=== PATIENT | male | born 1990 | race Two or more races ===

== ENCOUNTER 2016-11-27 23:44 | Inpatient (IN) | payer SELFPAY ==
--- NOTE | 2016-11-28 00:09 | EDPHY ---
H & P Stated Complaint: c/o vomitng x 3 days Time Seen by Provider: 11/27/16 23:57 HPI/ROS: CHIEF COMPLAINT: vomiting, retching, weakness for 3 days HISTORY OF PRESENT ILLNESS: this is a 26-year-old previously healthy young male without any antecedent GI workup who presents with onset at 4:00 a.m. on November 25 of an illness. When he woke up he had bilateral upper and epigastric discomfort without pain in the back. He also started retching at the time and he has been retching ever since for the most part dry heaves. At times he been some blood streaks but no stephanie hematemesis. Since that time he has essentially been unable to keep any fluids down. There is less of a sodium of decent fluid intake was Saturday evening before going to bed as which time he was feeling well. He has had no known exposure. No also been currently ill. His girlfriend is here with him did take care of him the 1st night of his illness and notes that she has not subsequent become sick. Furthermore, there is no antecedent outbreak of norovirus in the community. Also, he did not have an episode of a recent sore throat the in the last 3-4 weeks. He also notes that he gets this almost on a yearly basis for the last 4 years. However, this is by far and away the worse. Typically last 12-24 hours. He also frankly admits to having marijuana use 4 times weekly although certainly not daily. Initially, he has 3 alcoholic drinks a week, but no more than that. He has a negative CAGE Questionnaire. He denies any other recreational drug use such as crystal meth or methamphetamines or acid. At this point time he does not have the urge to urinate. He is alert and oriented x3. As to the abdominal discomfort in the epigastrium, it is not migraine and does not radiate to the back. He has never had before. He has never had any prior GI workup. No prior ultrasound or CT scans. Furthermore, he has not tried anything specifically to make ago weight has been persistent now for 2 and half days almost 3 days. It is moderate intensity, and feels like an ache REVIEW OF SYSTEMS: Constitutional: No fever, no chills. Eyes: No discharge No diplopia ENT: No sore throat. He does complain of a very severe dry mouth Cardiovascular: No chest pain, no palpitations. Respiratory: No cough, shortness of breath, or wheezing. Gastrointestinal: No diarrhea. Genitourinary: No hematuria or frequency. Musculoskeletal: No back pain. Skin: No rashes. Neurological: No headache. 10 point ROS otherwise negative Source: Patient Exam Limitations: No limitations - Personal History Current Tetanus Diphtheria and Acellular Pertussis (TDAP): Yes - Medical/Surgical History Hx Asthma: No Hx Chronic Respiratory Disease: No Hx Diabetes: No Hx Cardiac Disease: No Hx Renal Disease: No Hx Cirrhosis: No Hx Alcoholism: No Hx HIV/AIDS: No Hx Splenectomy or Spleen Trauma: No - Social History Smoking Status: Never smoked Alcohol Use: Occasionally Drug Use: Marijuana - Physical Exam Exam: General Appearance: Alert, mod distress, without diaphoresis. Afebrile. Normal phonation. No respiratory distress. Cotton mouth Eyes: Pupils equal and round no pallor or injection, pupils are at 6 mm which are large for blood male. No icterus ENT, Mouth: Mucous membranes dry, like on. Pharynx with erythema but no exudate. TM Clear. Neck: No adenopathy. Supple. No JVD. Trachea in midline. Respiratory: There are no retractions, lungs are clear to auscultation. Cardiovascular: Regular rate and rhythm, without murmur. Tachycardic. Abdomen: Soft bilateral diffuse mild tenderness above the umbilicus without masses, liver edge not percuss to be enlarged., no masses, bowel sounds normal. Femoral pulses equal. Neurological: Ox3. No motor weakness. Sensation intact. Gait nl. Skin: Warm and dry, no rashes. Musculoskeletal: No joint swelling. Extremities: No edema. Psychiatric: Normal affect. Patient is oriented X 3, there is no agitation Constitutional: Initial Vital Signs Temperature (C) 36.3 C 11/27/16 23:47 Heart Rate 81 11/27/16 23:47 Respiratory Rate 16 11/27/16 23:47 Blood Pressure 111/86 H 11/27/16 23:47 O2 Sat (%) 94 11/27/16 23:47 O2 Delivery Mode Room Air Allergies/Adverse Reactions: azithromycin Allergy (Verified 11/27/16 23:47) Home Medications: Medication Instructions Recorded NK [No Known Home Meds] 11/27/16 Medical Decision Making - Diagnostics EKG Interpretation: EKG. Interpreted by me contemporaneously. See my interpretation in [facility]. Heart rate is 122 evidence of sinus tachycardia. There is ST segment flattening and biphasic T in leads V3 through V6 as well as to a lesser degree in 2 3 and F suggestive of blood per rectum malady although ischemia is not ruled out. These are considered nonspecific ST-T changes. There is normal R- wave progression across precordium. There are Q-waves present in 2 3 and F however these are rather narrow to suggest that there physiologic rather than infarction related. QTC is 415 ED Course/Re-evaluation: Upon initial exam he appeared quite dehydrated and notably tachycardic. EKG is evidence above. Thereby he was started on aggressive fluid resuscitation as well as IV Zofran. I also gave him a dose of IV Benadryl with the anticipation of perhaps transition to Haldol. His clinical syndrome certainly would be compatible with cyclic vomiting syndrome. He had a good response to the Zofran and was no longer retching which was initially was doing while I did the initial exam. However furthermore, he also noted to be still nauseated thus a dose of Ativan was given. Initial laboratory studies were particularly worrisome in view of the profound hemoconcentration and evidence of acute renal injury. Thus, also in addition to the EKG findings, a troponin was added which was also detectable at 0.038. In view of the profound dehydration and kidney injury as evidenced by the electrolytes with a creatinine of 5.5 and hemoglobin of 20.8 I recommended hospitalization. I also recommended that he go by ambulance as he did have elevated troponin. He is adamant that he is fine to be driven by his girlfriend though it is [address] I have explained to them the potential risk of traveling in the setting of an elevated troponin with abnormal EKG and x-ray findings and risk of . He is awake alert oriented x3 and cognizant of the risks. Call was placed to the hospitalist, Dr. Clark, at [facility] and he agreed with admission to the telemetry floor for subsequent workup. As part of the differential would include who strep pharyngitis in the recent contacts however he certainly has had no history to suggest that. He does have a red throat the although he has been vomiting quite a bit. He is unable to provide a urinalysis at this point thus we are unable to perform her urine tox to further cooperate the fact that he does not use other illicit substances. A CPK will be added due to the potential for kidney injury in that setting of rhabdomyolysis. Differential Diagnosis: Differential diagnosis includes, but is not limited to: Gastroenteritis, dehydration, hepatitis, cholecystitis, appendicitis, gastritis , mesenteric adenitis, food poisoning, bacterial dysentery. - Data Points Laboratory Results: Laboratory Results 11/28/16 00:08 11/28/16 00:08 11/28/16 11/28/16 11/28/16 00:08 00:08 00:08 WBC RBC Hgb Hct MCV MCH MCHC RDW Plt Count MPV Neut % (Auto) Lymph % (Auto) [place] % (Auto) Eos % (Auto) Baso % (Auto) Nucleat RBC Rel Count Absolute Neuts (auto) Absolute Lymphs (auto) Absolute Monos (auto) Absolute Eos (auto) Absolute Basos (auto) Absolute Nucleated RBC Immature Gran % Immature Gran # Platelet Estimate Oval Macrocytes Smear Review By Sodium 136 mEq/L mEq/L (134-144) Potassium 4.1 mEq/L mEq/L (3.5-5.2) Chloride 79 mEq/L L mEq/L (97-110) Carbon Dioxide 19 mEq/l L mEq/l (22-31) Anion Gap 38 mEq/L H mEq/L (8-16) BUN 63 mg/dL H mg/dL (7-23) Creatinine 5.5 mg/dL H mg/dL (0.7-1.3) Estimated GFR 13 Glucose 188 mg/dL H mg/dL (70-100) Calcium 11.2 mg/dL H mg/dL (8.5-10.4) Phosphorus 8.1 mg/dL H mg/dL (2.5-4.5) Magnesium 3.1 mg/dL H mg/dL (1.6-2.3) Total Bilirubin 2.5 mg/dL H mg/dL (0.1-1.4) Conjugated Bilirubin 0.8 mg/dL H mg/dL (0.0-0.5) Unconjugated Bilirubin 1.7 mg/dL H mg/dL (0.0-1.1) AST 55 IU/L IU/L (17-59) ALT 78 IU/L H IU/L (21-72) Alkaline Phosphatase 113 IU/L IU/L (38-126) Creatine Kinase 255 IU/L H IU/L (0-224) CK-MB (CK-2) Fraction 0.52 ng/mL ng/mL (0-4.55) CK-MB (CK-2) % 0.2 % % (0.0-4.0) Creatine Kinase Interp NEGATIVE (NEGATIVE) Troponin I 0.038 ng/mL H ng/mL (0-0.034) Total Protein 11.3 g/dL H g/dL (6.3-8.2) Albumin 5.8 g/dL H g/dL (3.5-5.0) Lipase 83.0 IU/L IU/L (23-300) 11/28/16 00:08 WBC 22.80 10^3/uL H 10^3/uL (3.80-9.50) RBC 6.52 10^6/uL H 10^6/uL (4.40-6.38) Hgb 20.8 g/dL H* g/dL (13.7-17.5) Hct 55.4 % H % (40.0-51.0) MCV 85.0 fL fL (81.5-99.8) MCH 31.9 pg pg (27.9-34.1) MCHC 37.5 g/dL H g/dL (32.4-36.7) RDW 12.3 % % (11.5-15.2) Plt Count 317 10^3/uL 10^3/uL (150-400) MPV 10.9 fL fL (8.7-11.7) Neut % (Auto) 87.0 % H % (39.3-74.2) Lymph % (Auto) 2.7 % L % (15.0-45.0) [place] % (Auto) 9.5 % % (4.5-13.0) Eos % (Auto) 0.0 % L % (0.6-7.6) Baso % (Auto) 0.2 % L % (0.3-1.7) Nucleat RBC Rel Count 0.0 % % (0.0-0.2) Absolute Neuts (auto) 19.84 10^3/uL H 10^3/uL (1.70-6.50) Absolute Lymphs (auto) 0.62 10^3/uL L 10^3/uL (1.00-3.00) Absolute Monos (auto) 2.17 10^3/uL H 10^3/uL (0.30-0.80) Absolute Eos (auto) 0.00 10^3/uL L 10^3/uL (0.03-0.40) Absolute Basos (auto) 0.04 10^3/uL 10^3/uL (0.02-0.10) Absolute Nucleated RBC 0.00 10^3/uL 10^3/uL (0-0.01) Immature Gran % 0.6 % % (0.0-1.1) Immature Gran # 0.13 10^3/uL H 10^3/uL (0.00-0.10) Platelet Estimate ADEQUATE (ADEQ) Oval Macrocytes 1+ H Smear Review By Pending Sodium Potassium Chloride Carbon Dioxide Anion Gap BUN Creatinine Estimated GFR Glucose Calcium Phosphorus Magnesium Total Bilirubin Conjugated Bilirubin Unconjugated Bilirubin AST ALT Alkaline Phosphatase Creatine Kinase CK-MB (CK-2) Fraction CK-MB (CK-2) % Creatine Kinase Interp Troponin I Total Protein Albumin Lipase Medications Given: Discontinued Medications Diphenhydramine HCl (Benadryl Injection) 25 mg IVP EDNOW ONE Stop: 11/28/16 00:13 Last Admin: 11/28/16 00:20 Dose: 25 mg Famotidine (Pepcid) 20 mg IVP EDNOW ONE Stop: 11/28/16 01:08 Last Admin: 11/28/16 01:20 Dose: 20 mg Sodium Chloride (Ns) 1,000 mls @ 0 mls/hr IV ONCE ONE; As Directed PRN Reason: Protocol Stop: 11/28/16 00:12 Last Admin: 11/28/16 00:10 Dose: 1,000 mls Sodium Chloride (Ns) 500 mls @ 0 mls/hr IV ONCE ONE; As Directed PRN Reason: Protocol Stop: 11/28/16 00:12 Last Admin: 11/28/16 01:15 Dose: 500 mls Lorazepam (Ativan 1mg/Ml Iv Starke Syr) 1 mg IV ONCE ONE Stop: 11/28/16 01:08 Last Admin: 11/28/16 01:15 Dose: 1 mg Ondansetron HCl (Zofran) 8 mg IVP ONCE ONE Stop: 11/28/16 00:12 Last Admin: 11/28/16 00:20 Dose: 8 mg Departure - Departure Disposition: [facility] Inpatient Acute Clinical Impression: Acute kidney injury, Dehydration, severe, Volume depletion, Hypermagnesemia Renal failure, acute Qualifiers: Acute renal failure type: unspecified Qualified Code(s): N17.9 - Acute kidney failure, unspecified Condition: Fair Instructions: Dehydration (ED) Additional Instructions: You had been advised to go by ambulance to 1 of the local [facility] hospitals. We made arrangements for you at [facility]. The you have declined ambulance transfer, your to go there immediately for hospitalization.
[2016-11-28] MEDS ORDERED: NS 500 ML IV ONE (00:11)
[2016-11-28] MEDS ORDERED: ONDANSETRON 4 MG/2 ML VIAL IVP ONE (00:11)
[2016-11-28] MEDS ORDERED: NS 1,000 ML IV ONE (00:11)
[2016-11-28 00:17] LABS: % IMMATURE GRANULYOCYTES 0.6 % (0.0-1.1); ABSOLUTE IMMATURE GRANULOCYTES 0.13 10^3/uL (0.00-0.10); ADD DIFF? NO; ADD MORPH? NO; ADD SCAN? NO; ATYPICAL LYMPHOCYTE FLAG 0 (0-99); FRAGMENT RBC FLAG 0 (0-99); HEMATOCRIT 55.4 % (40.0-51.0); LEFT SHIFT FLG 0 (0-99); MEAN CELL HEMOGLOBIN 31.9 pg (27.9-34.1); MEAN CELL HEMOGLOBIN CONCENTR. 37.5 g/dL (32.4-36.7); MEAN PLATELET VOLUME 10.9 fL (8.7-11.7); PLATELET CLUMPS FLAG 10 (0-99); PLATELET COUNT 317 10^3/uL (150-400); RED BLOOD CELL COUNT 6.52 10^6/uL (4.40-6.38); RED CELL DISTRIBUTION WIDTH 12.3 % (11.5-15.2)
[2016-11-28 00:18] LABS: LIPEMIA HEMOLYSIS FLAG 100 (0-99)
[2016-11-28 00:22] LABS: HEMOGLOBIN 20.8 g/dL (13.7-17.5)
--- NOTE | 2016-11-28 00:31 | CPEKG ---
Heart Rate: 122 RR Interval: 492 P-R Interval: 108 QRSD Interval: 90 QT Interval: 328 QTC Interval: 468 P [place]: 78 QRS [place]: -52 T Wave [place]: -10 EKG Severity - BORDERLINE ECG - EKG Impression: SINUS TACHYCARDIA EKG Impression: LEFT AXIS DEVIATION EKG Impression: There is 1/[address] depression with biphasic T NSSTTchanges, laterally as well, EKG Impression: though to a lesser extent inferiorly, most likely due to electrolyte EKG Impression: abnormality. EKG Impression: INFERIOR Q WAVES, PROBABLY NORMAL VARIATION, as they are narrow. Electronically Signed By: Marin Perales 28-Nov-2016 00:36:18
[2016-11-28 00:42] LABS: ALBUMIN 5.8 g/dL (3.5-5.0); BILIRUBIN,TOTAL 2.5 mg/dL (0.1-1.4); BILIRUBIN-CONJUGATED 0.8 mg/dL (0.0-0.5); BILIRUBIN-UNCONJUGATED 1.7 mg/dL (0.0-1.1); CALCIUM 11.2 mg/dL (8.5-10.4); CREATININE 5.5 mg/dL (0.7-1.3); MAGNESIUM 3.1 mg/dL (1.6-2.3); POTASSIUM 4.1 mEq/L (3.5-5.2)
[2016-11-28 00:43] LABS: TOTAL PROTEIN 11.3 g/dL (6.3-8.2)
[2016-11-28 00:47] LABS: MACROCYTES 1+; PLATELET ESTIMATE ADEQUATE (ADEQ)
[2016-11-28] MEDS ORDERED: FAMOTIDINE 20 MG/2 ML SDV IVP ONE (01:07)
[2016-11-28] MEDS ORDERED: *PHM DO NOT USE-LORazepam 1 MG/ML IV NEWBORN SYR IV ONE (01:07)
[2016-11-28] MEDS ORDERED: LORazepam 2 MG/ML INJ ONE (01:08)
[2016-11-28 01:13] LABS: TROPONIN I 0.038 ng/mL (0-0.034)
[2016-11-28 02:15] LABS: CK-MB INTERPRETATION NEGATIVE (NEGATIVE); CREATINE KINASE-MB FRACTION 0.52 ng/mL (0-4.55)
[2016-11-28] MEDS: NS 1,000 ML IV SCH ×5 (03:00→22:51)
[2016-11-28] MEDS ORDERED: ACETAMINOPHEN 325 MG TAB PO PRN (03:14)
[2016-11-28] MEDS: ONDANSETRON 4 MG/2 ML VIAL IVP PRN (03:51)
--- NOTE | 2016-11-28 05:15 | GHP ---
[f rep st] HISTORY AND PHYSICAL DATE OF ADMISSION: 11/28/2016 HISTORY OF PRESENT ILLNESS: The patient is a 26-year-old gentleman with no past medical history, wh charles presents to the urgent care today with nausea and vomiting for a number of days. It sounds like emilia kimball has been sick for about 3 or 4 days. He said the nausea, maybe there was some hematemesis. He pickard s had upper abdominal pain. He has been having retching with dry heaves. This has been going on fo r about 2 days, has been able to get nothing down. There has been no stephanie hematemesis or coffee-gr ounds emesis. It sounds like he does use marijuana. He is a bit dodgy about how much he uses. He has been taking several hot baths per day while he is sick, but it is not clear if he has been doing that on a routine basis. It is not clear if he or his girlfriend may smell a little bit like marij uana. He has had no sick contacts. He has not had diarrhea. He has had no abdominal surgery. He had a previous episode like this in the past, but this is the worst one. He has not been hospita lized for it in the past. REVIEW OF SYSTEMS: Complete 10-point review of systems conducted and negative except as noted in th e HPI. PAST MEDICAL HISTORY: None. ALLERGIES: None. HOME MEDICATIONS: None. SOCIAL HISTORY: No tobacco. Occasional alcohol. Occasional marijuana. FAMILY HISTORY: Reviewed and unremarkable. ALLERGIES: Azithromycin. PHYSICAL EXAMINATION: VITAL SIGNS: Temp 36.3, blood pressure 111/86, pulse 81, now 110, breathing 16 times a minute, 94% on room air. GENERAL: No acute distress. Uncomfortable. HEENT: Sclerae a nicteric. Oropharynx is clear. Mucous membranes are moist. NECK: Supple without lymphadenopathy or JVD. LUNGS: Clear to auscultation bilaterally. HEART: S1, S2. Not tachycardic. ABDOMEN: So ft, nontender, nondistended. There is no rebound or guarding. LOWER EXTREMITIES: Without edema. Calves are nontender. SKIN: Without rash. Multiple tattoos. NEUROLOGIC: Nonfocal. LABORATORY DATA: White count 22.8, hemoglobin 20.8, hematocrit 55, platelets are 317,000. Sodium 1 36, potassium 4.1, chloride 93, bicarb 19, BUN 63, creatinine 5.5, glucose 188. Calcium 11.2, phosp horus 8.1, magnesium 3.1. Bilirubin is 2.5, predominantly unconjugated. ALT is slightly elevated a t 78. CK is 255, slightly elevated. Troponin 0.038. Albumin is 5.8. EKG interpreted by me shows sinus tach with left axis deviation. There are no ST or T-wave changes, although he does have a bit of biphasic T waves in V4 and V5. Discussed case Dr. Marin Perales. ASSESSMENT AND PLAN: A 26-year-old gentleman, who presents with nausea, vomiting, acute renal failu re. 1. Acute renal failure. This is almost certainly prerenal in nature due to profound dehydration. Will hydrate him and follow. Follow on telemetry given the potential for abnormal electrolytes incl uding hypokalemia or hyperkalemia. Patient has not urinated. If he has not urinated after followin g IV fluids, then we would be concerned about bladder outlet obstruction. At this point in time, I am not. 2. Indeterminate troponin. I think this is secondary to either viral illness with toxic versus jus t acute kidney injury. We will follow. Will also follow him on telemetry. 3. Metabolic acidosis. I suspect he has a metabolic alkalosis with loss of protons but also coexis ting metabolic acidosis with elevated ketones from not eating. We will hydrate and repeat. 4. Acute liver injury. The patient has an elevated bilirubin, mildly elevated ALT. Will follow. It is not clear that he is a heavy drinker. The pattern is not consistent with alcoholic hepatitis. Will follow. 5. Question cannabis hyperemesis syndrome. I am not convinced that he meets this diagnosis, althou gh I do have some suspicion. Will follow. He could also just have a viral illness. 6. Hyperphosphatemia secondary to renal failure. 7. Hypermagnesemia secondary to renal failure. 8. Hyperglycemia, stress reaction. 9. Hypercalcemia secondary to renal failure. I anticipate his electrolyte abnormalities will impro ve with hydration. 10. Prophylaxis. Pharmacologic prophylaxis can be held. He is low risk. DISPOSITION: Inpatient status. I think it will take 48 hours to improve his renal failure. /[id number]/MODL
[2016-11-28] MEDS: PROMETHAZINE HCL 25 MG/ML INJ IVP PRN ×3 (06:04→18:51)
[2016-11-28 08:03] LABS: % IMMATURE GRANULYOCYTES 0.5 % (0.0-1.1); ABSOLUTE IMMATURE GRANULOCYTES 0.09 10^3/uL (0.00-0.10); ADD DIFF? NO; ADD MORPH? NO; ADD SCAN? NO; ATYPICAL LYMPHOCYTE FLAG 0 (0-99); FRAGMENT RBC FLAG 0 (0-99); HEMATOCRIT 46.1 % (40.0-51.0); HEMOGLOBIN 16.7 g/dL (13.7-17.5); LEFT SHIFT FLG 0 (0-99); LIPEMIA HEMOLYSIS FLAG 90 (0-99); MEAN CELL HEMOGLOBIN 32.1 pg (27.9-34.1); MEAN CELL HEMOGLOBIN CONCENTR. 36.2 g/dL (32.4-36.7); MEAN CELL VOLUME 88.5 fL (81.5-99.8); MEAN PLATELET VOLUME 10.4 fL (8.7-11.7); PLATELET CLUMPS FLAG 0 (0-99); PLATELET COUNT 290 10^3/uL (150-400); RED BLOOD CELL COUNT 5.21 10^6/uL (4.40-6.38); RED CELL DISTRIBUTION WIDTH 12.5 % (11.5-15.2)
[2016-11-28 08:48] LABS: ANION GAP 19 mEq/L (8-16); CALCIUM 8.8 mg/dL (8.5-10.4); CARBON DIOXIDE 22 mEq/l (22-31); CHLORIDE 93 mEq/L (97-110); CREATININE 3.3 mg/dL (0.7-1.3); GLOMERULAR FILTRATION RATE 23; GLUCOSE 115 mg/dL (70-100); POTASSIUM 3.8 mEq/L (3.5-5.2); SODIUM 134 mEq/L (134-144)
[2016-11-28 08:53] LABS: TROPONIN I 0.027 ng/mL (0-0.034)
[2016-11-28] MEDS: ONDANSETRON DISINTEGRATING 4 MG TAB PO PRN ×3 (09:16→22:53)
[2016-11-28] MEDS: METOCLOPRAMIDE 10 MG/2 ML VIAL IVP PRN ×2 (10:18→16:28)
--- NOTE | 2016-11-28 12:27 | HOSPPROG ---
Hospitalist Progress Note Assessment/Plan: # renal failure, pre-renal: improved with IVF, continue this # intractable N/V - suspect MJ hyperemesis vs viral gastritis vs CVS vs other; abd exam reassuring - will need eval when doing better # profound dehydration # liver injury - recheck tomorrow 35 minutes of direct patient care and face to face time were spent today from 11 :50-12:25p Subjective: feels better but still not taking PO; urinated one time Objective: Vital Signs Temp Pulse Resp BP Pulse Ox 36.7 C 105 H 18 114/69 90 L 11/28/16 11:15 11/28/16 11:15 11/28/16 11:15 11/28/16 11:15 11/28/16 11:15 Laboratory Results 11/28/16 07:49 11/28/16 07:49 11/27/16 11/28/16 11/29/16 05:59 05:59 05:59 Intake Total 2100 Output Total 10 400 Balance 2089 -400 abd soft, NT, ND ICD10 Worksheet Patient Problems: Problems Problem Status Onset Renal failure, acute Acute Dehydration, severe Acute Volume depletion Acute Hypermagnesemia Acute
[2016-11-29] MEDS: PROMETHAZINE HCL 25 MG/ML INJ IVP PRN ×4 (00:45→21:39)
[2016-11-29 05:01] LABS: ALANINE AMINOTRANSFERASE 40 IU/L (21-72); ALBUMIN 3.2 g/dL (3.5-5.0); ALKALINE PHOSPHATASE 56 IU/L (38-126); ANION GAP 11 mEq/L (8-16); ASPARTATE AMINOTRANSFERASE 30 IU/L (17-59); BILIRUBIN,TOTAL 1.7 mg/dL (0.1-1.4); BILIRUBIN-CONJUGATED 0.4 mg/dL (0.0-0.5); BILIRUBIN-UNCONJUGATED 1.3 mg/dL (0.0-1.1); CALCIUM 8.2 mg/dL (8.5-10.4); CARBON DIOXIDE 23 mEq/l (22-31); CHLORIDE 102 mEq/L (97-110); GLOMERULAR FILTRATION RATE > 60; GLUCOSE 80 mg/dL (70-100); POTASSIUM 3.7 mEq/L (3.5-5.2); SODIUM 136 mEq/L (134-144); TOTAL PROTEIN 5.7 g/dL (6.3-8.2)
[2016-11-29] MEDS: NS 1,000 ML IV SCH ×2 (06:35→18:07)
[2016-11-29] MEDS: ONDANSETRON 4 MG/2 ML VIAL IVP PRN ×2 (06:35→17:18)
--- NOTE | 2016-11-29 10:01 | HOSPPROG ---
Hospitalist Progress Note Assessment/Plan: # renal failure, pre-renal: resolved with IVF # intractable N/V - suspect MJ hyperemesis vs viral gastritis vs CVS vs other; abd exam reassuring - check CT abd today wo contrast - discussed with Dr Nix - EGD today or tomorrow # profound dehydration # liver injury - resolved # indet trop - d/t demand Subjective: feels better after shower but had an episode of emesis today Objective: Vital Signs Temp Pulse Resp BP Pulse Ox 36.9 C 77 12 147/97 H 95 11/29/16 08:07 11/29/16 08:07 11/29/16 08:07 11/29/16 08:07 11/29/16 08:07 Laboratory Results 11/28/16 07:49 11/29/16 03:36 11/28/16 11/29/16 11/30/16 05:59 05:59 05:59 Intake Total 2099 2449 2009 Output Total 0 Balance 2089 520 2009 - Physical Exam Constitutional: no apparent distress, appears nourished Cardiovascular: regular rate and rhythym, no murmur, rub, or gallop Respiratory: no respiratory distress, no rales or rhonchi, clear to auscultation Gastrointestinal: normoactive bowel sounds, soft, non-tender abdomen, no palpable masses ICD10 Worksheet Patient Problems: Problems Problem Status Onset Renal failure, acute Acute Dehydration, severe Acute Volume depletion Acute Hypermagnesemia Acute
--- NOTE | 2016-11-29 11:50 | GCON ---
[f rep st] CONSULTATION DATE OF CONSULTATION: 11/29/2016 CHIEF COMPLAINT: Nausea and vomiting. HISTORY OF PRESENT ILLNESS: I am asked to see this patient in consultation by Dr. Barajas for a [place] complaint of nausea and vomiting. The patient is a 26-year-old, previously healthy, who has had 2 days of intractable nausea and vomiting, unable to take p.o.'s. Presented to the emergency room w ith signs of significant dehydration, and was treated with IV fluid management. Now, his nausea and vomiting are overall better. He does note some abdominal pain, mostly in the epigastric area. He states that he has had episodes of this before, at least once about a year ago, although not as judah re. There have been no clear triggers, although sometimes he can feel some nausea after alcohol. Sandra kimball has rare migraine headaches with his nausea and vomiting, and there is no clear prodrome. However , patient does note that a hot shower or a hot bath can alleviate his nausea. He takes no NSAIDs. Patient does use marijuana, but minimizes his intake. States he has not had much marijuana recently . No diarrhea or constipation. No blood in his stools. He has had some black stools, but does use Pepto-Bismol for the nausea. No family history for migraines or GI disease. ALLERGIES: No known allergies. CURRENT MEDICATIONS: None. PAST MEDICAL HISTORY: Otherwise negative. SOCIAL HISTORY: Patient uses occasional alcohol and marijuana. FAMILY HISTORY: Negative for ulcers or migraines. REVIEW OF SYSTEMS: I have performed a complete review of systems, which is negative except for the pertinent positives and negatives that are noted above in HPI. PHYSICAL EXAM: VITAL SIGNS: The patient is afebrile at 37 degrees, BP 147/97, pulse 77. CONSTITUT IONAL: He is alert and oriented. EYES: No scleral icterus. HEENT: No oral lesions. CARDIOVASCU LAR: Regular rate and rhythm. CHEST: Clear to auscultation. ABDOMEN: Positive bowel sounds. So me mild tenderness in the epigastric area, but no rebound, no hepatosplenomegaly. NEUROLOGIC: Matt sly nonfocal. SKIN: No rashes. LABORATORY DATA: On admission, showed BUN and creatinine of 63 and 5.5. It is now 29 and 1.0. LFT s were slightly elevated on admission, with an AST of 55, ALT of 78, lipase normal at 83, total bili pelletier 2.5, alkaline phosphatase 93. Hematocrit was 40. This morning, it is 46.1, with a white coun t of [address] scan of the abdomen shows no acute abdominal process. He does have n ephrolithiasis but no hydronephrosis. ASSESSMENT: Nausea and vomiting with a patient with a history of nausea and vomiting previously. D ifferential diagnosis is extensive. However, I think most likely this is hyperemesis from marijuana , supported by relief with hot showers. I think cyclic vomiting is much less likely. Also, conside r gastritis or ulcers. Given the severity of his nausea and vomiting and significant dehydration, I think it is warranted to do an upper endoscopy to ensure no underlying obstruction or gastritis. D iscussed with the patient. He agrees to proceed. PLAN: 1. We will arrange for an upper endoscopy. I think this should be done with anesthesia. Given his young age and marijuana use, he may be difficult to adequately sedate, which we will arrange either tonight or tomorrow. 2. IV fluids. Keep n.p.o. until EGD is done. I have advised the patient to avoid marijuana. Thank you for this consult. /[id number]/MODL
[2016-11-29] MEDS: METOCLOPRAMIDE 10 MG/2 ML VIAL IVP PRN ×2 (11:53→18:03)
[2016-11-29] MEDS ORDERED: PROPOFOL 200 MG/20 ML VIAL ONE ×3 (12:49→12:56)
--- NOTE | 2016-11-29 13:08 | SUROPNOTE ---
[facility] Operative Report - Surgery EGD full note dictated Eso: esophagitis c/w history of vomiting Stomach mild erythema biopsied Duodenitis moderate plan PPI BID for 12 weeks Await biopsy results No NSAIDS Abstain from marijuana Repeat EGD in 3 months to assess healing Advance diet as tolerated Will sign off
--- NOTE | 2016-11-29 15:56 | GPN ---
[f rep st] PROCEDURE NOTE DATE OF PROCEDURE: 11/29/2016 PROCEDURE: Upper endoscopy with biopsy. INSTRUMENT USED: Video gastroscope. SEDATION: Monitored anesthesia care, per the anesthesiologist. INDICATIONS: Patient is a 26-year-old with nausea, vomiting, and dehydration, referred for upper endoscopy for evaluation. Prior to the procedure examine was preformed including lungs are clear to auscultation. The heart and lungs are within normal limits. The patient mental status was appropriate. Procedure was explained including the risks of bleeding or perforation, and gave informed consent. FINDINGS: After anesthesia was applied, the scope was then passed through the mouth into the esophagus, which was notable for a significant distal esophagitis consistent with a recent history of vomiting but no ulcerations, no active bleeding. Scope then passed into the stomach, which had some mild erythema in the antrum, no ulcers. Biopsies are taken of the stomach and then scope passed in the duodenum, which in the bulb was notable for a moderate duodenitis but no ulcers or erosions, mostly edema, granularity and erythema. Scope is removed from the patient, who tolerated the procedure well. Time was approximately 10 minutes. ASSESSMENT: 1. Distal grade D erosive esophagitis, consistent with recent vomiting. 2. Mild gastric erythema. 3. Moderate duodenitis, consider NSAID for Helicobacter pylori. PLAN: 1. Recommend PPI twice daily for 12 weeks. 2. Recommend to avoid NSAIDs and abstain from marijuana. 3. Suggest repeat upper endoscopy in 3 months to assess for healing, this probably should be done at the hospital with MAC given patient did require a great deal of sedation. 4. Advance diet as tolerated. Thank you for this consult. /[id number]/MODL MTDD
[2016-11-29] MEDS ORDERED: LIDOCAINE 2% VISCOUS 15 ML UDCUP PO ONE (18:13)
[2016-11-29] MEDS ORDERED: HYOSCYAMINE SULFATE 0.125 MG TAB PO ONE (18:13)
[2016-11-29] MEDS ORDERED: MAG HYDROX/AL HYDROX/SIMETH 30 ML UDCUP PO ONE (18:13)
[2016-11-29] MEDS: CALCIUM CARBONATE 500 MG CHEWABLE TAB PO PRN (18:25)
[2016-11-29] MEDS: PANTOPRAZOLE SODIUM 40 MG TAB PO SCH (21:18)
[2016-11-29] MEDS: MBX SOLN 30 ML BOTTLE PO PRN (22:55)
[2016-11-30] MEDS: MBX SOLN 30 ML BOTTLE PO PRN ×5 (02:24→21:35)
[2016-11-30] MEDS: METOCLOPRAMIDE 10 MG/2 ML VIAL IVP PRN (02:27)
[2016-11-30] MEDS: PROMETHAZINE HCL 25 MG/ML INJ IVP PRN (06:36)
[2016-11-30] MEDS: ONDANSETRON DISINTEGRATING 4 MG TAB PO PRN ×3 (08:36→16:34)
[2016-11-30] MEDS: PANTOPRAZOLE SODIUM 40 MG TAB PO SCH ×2 (08:36→19:38)
--- NOTE | 2016-11-30 09:56 | HOSPPROG ---
Hospitalist Progress Note Assessment/Plan: 26 yo M w admitted w N/V, JEN renal failure, pre-renal: resolved with IVF electrolyte disturbances: attributable to JEN improved w normalization of renal function intractable N/V - suspect MJ hyperemesis vs viral gastritis vs CVS vs other; abd exam reassuring - check CT abd w no cause for vomiting (images reviewed/interp by me) EGD w esophagitis and duodenitis denies NSAIDS suspect ETOH profound dehydration liver injury - resolved indet trop - d/t demand and JEN proph: add LMWH Subjective: still w nausea and vomiting. post prandial vomiting this AM. case d/w GI MD Objective: Vital Signs Temp Pulse Resp BP Pulse Ox 36.8 C 64 16 135/98 H 94 11/30/16 07:45 11/30/16 07:45 11/30/16 07:45 11/30/16 07:45 11/30/16 07:45 Laboratory Results 11/28/16 07:49 11/29/16 03:36 11/29/16 11/30/16 12/01/16 05:59 05:59 05:59 Intake Total 2450 4961 Output Total 8128 449 9316 Balance 520 4336 -1025 - Physical Exam Constitutional: no apparent distress, appears nourished Eyes: PERRL, anicteric sclera Ears, Nose, Mouth, Throat: moist mucous membranes, hearing normal Cardiovascular: regular rate and rhythym, no murmur, rub, or gallop Respiratory: no respiratory distress, no rales or rhonchi Gastrointestinal: normoactive bowel sounds, soft, non-tender abdomen Genitourinary: No rodriguez in urethra Skin: warm, normal color Musculoskeletal: full muscle strength, no muscle tenderness Neurologic: AAOx3 ICD10 Worksheet Patient Problems: Problems Problem Status Onset Dehydration, severe Acute Hypermagnesemia Acute Renal failure, acute Acute Volume depletion Acute
[2016-11-30] MEDS: ENOXAPARIN 40 MG/0.4 ML SYR SC SCH (11:33)
[2016-12-01] MEDS: MBX SOLN 30 ML BOTTLE PO PRN ×6 (00:42→22:35)
[2016-12-01] MEDS: ENOXAPARIN 40 MG/0.4 ML SYR SC SCH (08:04)
[2016-12-01] MEDS: PANTOPRAZOLE SODIUM 40 MG TAB PO SCH ×2 (08:05→19:57)
[2016-12-01] MEDS: METOCLOPRAMIDE 10 MG/2 ML VIAL IVP PRN ×2 (08:30→16:04)
[2016-12-01] MEDS: PROMETHAZINE HCL 25 MG/ML INJ IVP PRN ×2 (10:39→19:58)
[2016-12-01] MEDS: NS 1,000 ML IV SCH ×2 (12:56→19:58)
[2016-12-01 13:12] LABS: % IMMATURE GRANULYOCYTES 0.4 % (0.0-1.1); ABSOLUTE IMMATURE GRANULOCYTES 0.04 10^3/uL (0.00-0.10); ADD DIFF? NO; ADD MORPH? NO; ADD SCAN? NO; ATYPICAL LYMPHOCYTE FLAG 10 (0-99); FRAGMENT RBC FLAG 0 (0-99); HEMATOCRIT 41.4 % (40.0-51.0); LEFT SHIFT FLG 0 (0-99); LIPEMIA HEMOLYSIS FLAG 90 (0-99); MEAN CELL HEMOGLOBIN 32.1 pg (27.9-34.1); MEAN CELL HEMOGLOBIN CONCENTR. 36.2 g/dL (32.4-36.7); MEAN CELL VOLUME 88.7 fL (81.5-99.8); MEAN PLATELET VOLUME 10.2 fL (8.7-11.7); PLATELET CLUMPS FLAG 0 (0-99); PLATELET COUNT 272 10^3/uL (150-400); RED BLOOD CELL COUNT 4.67 10^6/uL (4.40-6.38); RED CELL DISTRIBUTION WIDTH 11.9 % (11.5-15.2)
[2016-12-01 13:31] LABS: ALANINE AMINOTRANSFERASE 53 IU/L (21-72); ALBUMIN 4.1 g/dL (3.5-5.0); ALKALINE PHOSPHATASE 68 IU/L (38-126); ANION GAP 16 mEq/L (8-16); ASPARTATE AMINOTRANSFERASE 33 IU/L (17-59); CALCIUM 9.4 mg/dL (8.5-10.4); CARBON DIOXIDE 21 mEq/l (22-31); CHLORIDE 99 mEq/L (97-110); CREATININE 0.9 mg/dL (0.7-1.3); GLOMERULAR FILTRATION RATE > 60; GLUCOSE 71 mg/dL (70-100); MAGNESIUM 2.1 mg/dL (1.6-2.3); POTASSIUM 3.8 mEq/L (3.5-5.2); SODIUM 136 mEq/L (134-144); TOTAL PROTEIN 7.1 g/dL (6.3-8.2)
[2016-12-02 02:25] LABS: COLOR YELLOW; LEUKOCYTE ESTERASE,URINE NEGATIVE (NEGATIVE); NITRITE,URINE NEGATIVE (NEGATIVE)
[2016-12-02 02:31] LABS: MUCUS TRACE /lpf (NONE-1+)
[2016-12-02] MEDS: MBX SOLN 30 ML BOTTLE PO PRN (08:50)
[2016-12-02] MEDS: CALCIUM CARBONATE 500 MG CHEWABLE TAB PO PRN (08:53)
[2016-12-02] MEDS: PANTOPRAZOLE SODIUM 40 MG TAB PO SCH (08:53)
[2016-12-02 09:33] VITALS: BP 127/104; PULSE 98; RESP 16; TEMP 98.6; O2SAT 97
[2016-12-02] MEDS: PROMETHAZINE HCL 25 MG/ML INJ IVP PRN (10:16)
[2016-12-02] MEDS: ENOXAPARIN 40 MG/0.4 ML SYR SC SCH (10:21)
--- NOTE | 2016-12-02 11:40 | PDDCSUM ---
Discharge Summary Discharge Summary: Dates of service 11/28-12/02/16 Discharge diagnosis: # intractable n/v # jen # electrolyte abnormalities # esophagitis/duodenitis # acute liver injury # MJ use #elevated troponin/demand ischemia Consultations: GI Procedures performed: abd/pelvis CT, EGD Hospital course by problem: 26 yo M w admitted w N/V, JEN renal failure, pre-renal: resolved with IVF electrolyte disturbances: attributable to JEN improved w normalization of renal function intractable N/V - suspect MJ hyperemesis vs viral gastritis vs cyclical vomiting syndrome. EGD with esophagitis/duodenitis likely related to prolonged vomiting. He admits to having essentially had a lifetime of issues with eating-- eating very little but this is baseline for him EGD w esophagitis and duodenitis--continue ppi bid x 1 month recommending that he get f/u with a pcp profound dehydration liver injury - resolved indet trop - d/t demand and JEN Discharge home f/u--establish care with a pcp, he is working on getting medicaid Meds: sent home with rx for zofran, pantoprazole and phenergan > 40 minutes spent in dc of patient more than half in face to face counseling of patient regarding f/u care plans
--- NOTE | 2016-12-02 13:21 | HOSPPROG ---
Hospitalist Progress Note Assessment/Plan: 26 yo M w admitted w N/V, JEN renal failure, pre-renal: resolved with IVF electrolyte disturbances: attributable to JEN improved w normalization of renal function intractable N/V - suspect MJ hyperemesis vs viral gastritis vs CVS vs other; abd exam reassuring still having n/v however and not tolerating diet well EGD w esophagitis and duodenitis--continue ppi could consider upper gi with sbft if fails to improve profound dehydration liver injury - resolved indet trop - d/t demand and JEN proph: add LMWH Subjective: still having some n/v this am and not tolerating food well, states that yesterday he felt better, he notes that after eating he feels as if he has to make himself throw up in order to feel better rather than as if he has no choice but to vomit Objective: Vital Signs Temp Pulse Resp BP Pulse Ox 37.0 C 98 16 127/104 H 97 12/02/16 08:00 12/02/16 08:00 12/02/16 08:00 12/02/16 08:00 12/02/16 08:00 Laboratory Results 12/01/16 12:50 12/01/16 12:50 12/01/16 12/02/16 12/03/16 05:59 05:59 05:59 Intake Total 2400 2641 Output Total 1625 325 Balance 775 2316 awake alert nad mild distress anicteric op clear mmm rrr no mrg cta b soft nt nd no cce warm dry well perfused oriented appropriate ICD10 Worksheet Patient Problems: Problems Problem Status Onset Renal failure, acute Acute Dehydration, severe Acute Volume depletion Acute Hypermagnesemia Acute
== END 2016-12-02 15:00 | disposition home or self-care (01) | DRG 682 ==
LOC: CED 23:44 → CEDHOLD 11-28 01:24 → F2W 11-28 02:25
PROVIDERS: ADMIT Internal Medicine; ATTEND Internal Medicine
PROC: 0DB68ZX Excision of Stomach, Via Natural or Artificial Opening Endoscopic, Diagnostic (ICD-10-PCS; principal; 2016-11-29 12:45)
DX: N17.9 Acute kidney failure, unspecified (principal); E86.0 Dehydration; K72.00 Acute and subacute hepatic failure without coma; K20.9 Esophagitis, unspecified; K29.80 Duodenitis without bleeding; F12.90 Cannabis use, unspecified, uncomplicated; E83.39 Other disorders of phosphorus metabolism; E83.41 Hypermagnesemia; R73.9 Hyperglycemia, unspecified; E83.52 Hypercalcemia
CPT/HCPCS: 80048-PO; 80076-PO; 82550-PO; 82553-PO; 83690-PO; 83735-PO; 84100-PO; 84484-PO; 85025-PO; 96374; J1200; J1650; J2060; J2405; J2550; J2704; J2765

== ENCOUNTER 2016-12-23 11:02 | Observation (INO) | payer SELFPAY ==
--- NOTE | 2016-12-23 11:13 | EDPHY ---
H & P Stated Complaint: n/v abd pain (Has had cyclical vomiting diagnosis in past) HPI/ROS: HPI CHIEF COMPLAINT: Nausea, vomiting, abdominal pain HISTORY OF PRESENT ILLNESS: This patient 26-year-old male, recent hospitalization in November for intractable nausea vomiting acute kidney injury, duodenitis, esophagitis, cyclic vomiting syndrome and marijuana use, presents to the emergency room with nausea vomiting and diffuse abdominal pain that started earlier this morning. Unable to tolerate p.o.. Tells me he has not smoked marijuana had alcohol in over a month. Patient tells me that woke up this morning with nausea vomiting and diffuse abdominal pain. Feels similar to previous episode. No diarrhea. No fever. No chest pain denies shortness of breath. Main complaint is epigastric burning pain nausea vomiting. Past Medical History: Acute kidney injury, duodenitis, esophagitis, cyclic vomiting syndrome, marijuana use Past Surgical History: No recent surgical history Social History: For patient marijuana use 1 month ago, alcohol 1 month ago, denies any other illicit drugs currently Family History: Noncontributory ROS REVIEW OF SYSTEMS: A comprehensive 10 point review of systems is otherwise negative aside from elements mentioned in the history of present illness. Exam Constitutional appears anxious triage nursing summary reviewed, vital signs reviewed, awake/alert. Eyes normal conjunctivae and sclera, EOMI, PERRLA. HENT normal inspection, atraumatic, moist mucus membranes, no epistaxis, neck supple/ no meningismus, no raccoon eyes. Respiratory clear to auscultation bilaterally, normal breath sounds, no respiratory distress, no wheezing. Cardiovascular rate normal, regular rhythm, no murmur, no edema, distal pulses normal. Gastrointestinal diffuse abdominal pain, no peritoneal signs, most focally tender in the epigastric region, , no rebound, no guarding, normal bowel sounds , no distension, no pulsatile mass. Genitourinary no CVA tenderness. Musculoskeletal no midline vertebral tenderness, full range of motion, no calf swelling, no tenderness of extremities, no meningismus, good pulses, neurovascularly intact. Skin pink, warm, & dry, no rash, skin atraumatic. Neurologic awake, alert and oriented x 3, AAOx3, moves all 4 extremities equally, motor intact, sensory intact, CN II-XII intact, normal cerebellar, normal vision, normal speech. Psychiatric normal mood/affect. Heme/Lymph/Immune no lymphadenopathy. Differential diagnosis includes but is not limited to and in no particular order : Bowel obstruction, appendicitis, gallbladder disease, diverticulitis, colitis , enteritis, perforated viscus, gastritis, GERD, esophagitis, urinary tract infection, pyelonephritis, kidney stones Medical Decision Making: Plan for this patient IV establishment, IV fluid bolus 2 L normal saline, IV Protonix, IV Zofran for nausea, check abdominal blood work, given the amount of abdominal pain the patient is having on exam will proceed with CT abdomen pelvis rule out perforation., rule out bowel obstruction. Re-evaluation: CT scan of the abdomen pelvis with IV contrast. The results of the study are negative for acute abnormality The study was read by Dr. Cleary 1306: This patient continues to have vomiting nausea and ongoing abdominal pain despite IV fluids, Phenergan, Zofran, alcohol. Patient will need hospital admission for ongoing nausea vomiting Intractible. This patient has been accepted by Dr. Zhu. Patient be appropriately transfer there by [facility]. He is hemodynamically stable and safe for transfer at this time. Patient agrees for inpatient hospitalization and transfer. Source: Patient - Personal History Current Tetanus/Diphtheria Vaccine: Yes - Medical/Surgical History Hx Asthma: No Hx Chronic Respiratory Disease: No Hx Diabetes: No Hx Cardiac Disease: No Hx Renal Disease: No Hx Cirrhosis: No Hx Alcoholism: No Hx HIV/AIDS: No Hx Splenectomy or Spleen Trauma: No Other PMH: cyclical vomiting/kidney stones renal failure - Social History Smoking Status: Never smoked Constitutional: Initial Vital Signs Temperature (C) 36.8 C 12/23/16 11:08 Heart Rate 110 H 12/23/16 11:08 Respiratory Rate 24 H 12/23/16 11:08 Blood Pressure 138/96 H 12/23/16 11:08 O2 Sat (%) 99 12/23/16 11:08 O2 Delivery Mode Room Air Allergies/Adverse Reactions: azithromycin Allergy (Verified 12/23/16 11:07) Hives Home Medications: Medication Instructions Recorded Calcium Carbonate [Tums 500MG (*)] 500 mg PO TID PRN #0 tab.chew 12/02/16 Medical Decision Making - Diagnostics Imaging Results: Imaging Impressions Abdomen CT 12/23/16 11:19 Impression: 1. No acute intraabdominal process. 2. No pneumoperitoneum, bowel obstruction, or adynamic ileus. Findings discussed with emergency department physician, Avery Gilbert MD on December 23, 2016 at 12:54 p.m. - Data Points Laboratory Results: Laboratory Results 12/23/16 11:25 12/23/16 11:25 12/23/16 12/23/16 12/23/16 12:50 12:11 11:25 WBC RBC Hgb Hct MCV MCH MCHC RDW Plt Count MPV Neut % (Auto) Lymph % (Auto) [place] % (Auto) Eos % (Auto) Baso % (Auto) Nucleat RBC Rel Count Absolute Neuts (auto) Absolute Lymphs (auto) Absolute Monos (auto) Absolute Eos (auto) Absolute Basos (auto) Absolute Nucleated RBC Immature Gran % Seg Neutrophils % Band Neutrophils % Lymphocytes % Monocytes % Immature Gran # Absolute Seg Neuts Absolute Band Neuts Absolute Lymphocytes Absolute Monocytes Atypical Lymphocytes Platelet Estimate PT INR APTT VBG Lactic Acid 1.9 mmol/L D mmol/L (0.7-2.1) Sodium 140 mEq/L mEq/L (134-144) Potassium 3.9 mEq/L mEq/L (3.5-5.2) Chloride 102 mEq/L mEq/L (97-110) Carbon Dioxide 20 mEq/l L mEq/l (22-31) Anion Gap 18 mEq/L H mEq/L (8-16) BUN 11 mg/dL mg/dL (7-23) Creatinine 1.0 mg/dL mg/dL (0.7-1.3) Estimated GFR > 60 Glucose 126 mg/dL H mg/dL (70-100) Calcium 9.7 mg/dL mg/dL (8.5-10.4) Total Bilirubin 1.2 mg/dL mg/dL (0.1-1.4) Conjugated Bilirubin 0.4 mg/dL mg/dL (0.0-0.5) Unconjugated Bilirubin 0.8 mg/dL mg/dL (0.0-1.1) AST 24 IU/L IU/L (17-59) ALT 27 IU/L IU/L (21-72) Alkaline Phosphatase 66 IU/L IU/L (38-126) Total Protein 7.3 g/dL g/dL (6.3-8.2) Albumin 4.2 g/dL g/dL (3.5-5.0) Lipase 73.0 IU/L IU/L (23-300) Urine Color YELLOW Urine Appearance CLEAR Urine pH 6.5 (5.0-7.5) Ur Specific [place] 1.010 (1.002-1.030) Urine Protein NEGATIVE (NEGATIVE) Urine Ketones 2+ H (NEGATIVE) Urine Blood TRACE H (NEGATIVE) Urine Nitrate NEGATIVE (NEGATIVE) Urine Bilirubin NEGATIVE (NEGATIVE) Urine Urobilinogen 0.2 EU EU (0.2-1.0) Ur Leukocyte Esterase NEGATIVE (NEGATIVE) Urine RBC 0-1 /hpf /hpf (0-3) Urine WBC 0-1 /hpf /hpf (0-3) Ur Epithelial Cells NONE SEEN /lpf /lpf (NONE-1+) Urine Bacteria TRACE /hpf H /hpf (NONE SEEN) Hyaline Casts 0-1 /lpf /lpf (0-1) Urine Mucus TRACE /lpf /lpf (NONE-1+) Urine Glucose NEGATIVE (NEGATIVE) Urine Opiates Screen NEGATIVE (NEGATIVE) Urine Barbiturates NEGATIVE (NEGATIVE) Ur Phencyclidine Scrn NEGATIVE (NEGATIVE) Ur Amphetamine Screen NEGATIVE (NEGATIVE) U Benzodiazepines Scrn NEGATIVE (NEGATIVE) Urine Cocaine Screen NEGATIVE (NEGATIVE) U Marijuana (THC) Screen NON-NEGATIVE H (NEGATIVE) 12/23/16 12/23/16 12/23/16 11:25 11:25 11:25 WBC 7.31 10^3/uL 10^3/uL (3.80-9.50) RBC 5.32 10^6/uL 10^6/uL (4.40-6.38) Hgb 17.3 g/dL g/dL (13.7-17.5) Hct 46.4 % % (40.0-51.0) MCV 87.2 fL fL (81.5-99.8) MCH 32.5 pg pg (27.9-34.1) MCHC 37.3 g/dL H g/dL (32.4-36.7) RDW 12.1 % % (11.5-15.2) Plt Count 188 10^3/uL 10^3/uL (150-400) MPV 10.6 fL fL (8.7-11.7) Neut % (Auto) 64.5 % % (39.3-74.2) Lymph % (Auto) 25.0 % % (15.0-45.0) [place] % (Auto) 9.3 % % (4.5-13.0) Eos % (Auto) 0.4 % L % (0.6-7.6) Baso % (Auto) 0.5 % % (0.3-1.7) Nucleat RBC Rel Count 0.0 % % (0.0-0.2) Absolute Neuts (auto) 4.71 10^3/uL 10^3/uL (1.70-6.50) Absolute Lymphs (auto) 1.83 10^3/uL 10^3/uL (1.00-3.00) Absolute Monos (auto) 0.68 10^3/uL 10^3/uL (0.30-0.80) Absolute Eos (auto) 0.03 10^3/uL 10^3/uL (0.03-0.40) Absolute Basos (auto) 0.04 10^3/uL 10^3/uL (0.02-0.10) Absolute Nucleated RBC 0.00 10^3/uL 10^3/uL (0-0.01) Immature Gran % 0.3 % % (0.0-1.1) Seg Neutrophils % 56 % % Band Neutrophils % 13 % % Lymphocytes % 25 % % Monocytes % 6 % % Immature Gran # 0.02 10^3/uL 10^3/uL (0.00-0.10) Absolute Seg Neuts 4.1 K/MM3 K/MM3 (1.8-7) Absolute Band Neuts 1.0 K/MM3 H K/MM3 (0-0.7) Absolute Lymphocytes 1.8 K/mm3 K/mm3 (1.0-4.8) Absolute Monocytes 0.4 K/mm3 K/mm3 (0-0.8) Atypical Lymphocytes 1+ H Platelet Estimate ADEQUATE (ADEQ) PT 13.5 SEC SEC (12.0-15.0) INR 1.06 (0.83-1.16) APTT 34.8 SEC SEC (23.0-38.0) VBG Lactic Acid 3.8 mmol/L H mmol/L (0.7-2.1) Sodium Potassium Chloride Carbon Dioxide Anion Gap BUN Creatinine Estimated GFR Glucose Calcium Total Bilirubin Conjugated Bilirubin Unconjugated Bilirubin AST ALT Alkaline Phosphatase Total Protein Albumin Lipase Urine Color Urine Appearance Urine pH Ur Specific [place] Urine Protein Urine Ketones Urine Blood Urine Nitrate Urine Bilirubin Urine Urobilinogen Ur Leukocyte Esterase Urine RBC Urine WBC Ur Epithelial Cells Urine Bacteria Hyaline Casts Urine Mucus Urine Glucose Urine Opiates Screen Urine Barbiturates Ur Phencyclidine Scrn Ur Amphetamine Screen U Benzodiazepines Scrn Urine Cocaine Screen U Marijuana (THC) Screen Medications Given: Discontinued Medications Sodium Chloride (Ns) 2,000 mls @ 0 mls/hr IV ONCE ONE; Wide Open PRN Reason: Protocol Stop: 12/23/16 11:15 Last Admin: 12/23/16 11:28 Dose: 2,000 mls Pantoprazole Sodium 40 mg/ (Sodium Chloride) 100 mls @ 200 mls/hr IV EDNOW ONE Stop: 12/23/16 11:48 Last Admin: 12/23/16 11:32 Dose: 100 mls Ondansetron HCl (Zofran) 4 mg IVP EDNOW ONE Stop: 12/23/16 11:15 Last Admin: 12/23/16 11:28 Dose: 4 mg Promethazine HCl (Phenergan) 12.5 mg IVP ONCE ONE Stop: 12/23/16 12:04 Last Admin: 12/23/16 12:10 Dose: 12.5 mg Departure - Departure Disposition: [facility] Inpatient Acute Clinical Impression: Vomiting Qualifiers: Vomiting type: unspecified Vomiting Intractability: intractable Nausea presence : with nausea Qualified Code(s): R11.2 - Nausea with vomiting, unspecified Condition: Fair
[2016-12-23] MEDS ORDERED: NS 2,000 ML IV ONE (11:14)
[2016-12-23] MEDS ORDERED: ONDANSETRON 4 MG/2 ML VIAL IVP ONE (11:14)
[2016-12-23] MEDS ORDERED: PANTOPRAZOLE SODIUM 40 MG in NS 100 ML IV ONE (11:19)
[2016-12-23 11:35] LABS: % IMMATURE GRANULYOCYTES 0.3 % (0.0-1.1); ABSOLUTE IMMATURE GRANULOCYTES 0.02 10^3/uL (0.00-0.10); ADD DIFF? NO; ADD MORPH? NO; ADD SCAN? YES; FRAGMENT RBC FLAG 0 (0-99); HEMATOCRIT 46.4 % (40.0-51.0); HEMOGLOBIN 17.3 g/dL (13.7-17.5); LEFT SHIFT FLG 10 (0-99); LIPEMIA HEMOLYSIS FLAG 90 (0-99); MEAN CELL HEMOGLOBIN 32.5 pg (27.9-34.1); MEAN CELL HEMOGLOBIN CONCENTR. 37.3 g/dL (32.4-36.7); MEAN CELL VOLUME 87.2 fL (81.5-99.8); MEAN PLATELET VOLUME 10.6 fL (8.7-11.7); PLATELET CLUMPS FLAG 10 (0-99); PLATELET COUNT 188 10^3/uL (150-400); RED BLOOD CELL COUNT 5.32 10^6/uL (4.40-6.38); RED CELL DISTRIBUTION WIDTH 12.1 % (11.5-15.2)
[2016-12-23 11:40] LABS: ATYPICAL LYMPHOCYTE FLAG 200 (0-99)
[2016-12-23 11:43] LABS: ALANINE AMINOTRANSFERASE 27 IU/L (21-72); ALBUMIN 4.2 g/dL (3.5-5.0); ALKALINE PHOSPHATASE 66 IU/L (38-126); ANION GAP 18 mEq/L (8-16); ASPARTATE AMINOTRANSFERASE 24 IU/L (17-59); BILIRUBIN,TOTAL 1.2 mg/dL (0.1-1.4); BILIRUBIN-CONJUGATED 0.4 mg/dL (0.0-0.5); BILIRUBIN-UNCONJUGATED 0.8 mg/dL (0.0-1.1); CALCIUM 9.7 mg/dL (8.5-10.4); CARBON DIOXIDE 20 mEq/l (22-31); CHLORIDE 102 mEq/L (97-110); GLOMERULAR FILTRATION RATE > 60; GLUCOSE 126 mg/dL (70-100); POTASSIUM 3.9 mEq/L (3.5-5.2); SODIUM 140 mEq/L (134-144); TOTAL PROTEIN 7.3 g/dL (6.3-8.2)
[2016-12-23 11:49] LABS: INR 1.06 (0.83-1.16); PROTIME(PATIENT) 13.5 SEC (12.0-15.0)
[2016-12-23 11:50] LABS: APTT 34.8 SEC (23.0-38.0)
[2016-12-23] MEDS ORDERED: PROMETHAZINE HCL 25 MG/ML INJ IVP ONE (12:03)
[2016-12-23] MEDS ORDERED: IOPAMIDOL (ISOVUE-300) 100 ML BTL ONE (12:06)
[2016-12-23 12:16] LABS: SCAN POSITIVE
[2016-12-23 12:18] LABS: PLATELET ESTIMATE ADEQUATE (ADEQ)
[2016-12-23 12:57] LABS: COLOR YELLOW; LEUKOCYTE ESTERASE,URINE NEGATIVE (NEGATIVE); NITRITE,URINE NEGATIVE (NEGATIVE); PH,URINE 6.5 (5.0-7.5)
[2016-12-23] MEDS ORDERED: HALOPERIDOL LACT 5 MG/ML INJ IVP ONE (13:00)
[2016-12-23] MEDS ORDERED: HALOPERIDOL LACT 5 MG/ML INJ ONE (13:00)
[2016-12-23] MEDS ORDERED: NS 1,000 ML IV ONE (13:05)
[2016-12-23 13:08] LABS: BACTERIA TRACE /hpf (NONE SEEN); HYALINE CASTS 0-1 /lpf (0-1); MUCUS TRACE /lpf (NONE-1+); RBC,URINE 0-1 /hpf (0-3); WBC,URINE 0-1 /hpf (0-3)
[2016-12-23] MEDS ORDERED: ACETAMINOPHEN 325 MG TAB PO PRN (14:16)
[2016-12-23] MEDS ORDERED: ONDANSETRON DISINTEGRATING 4 MG TAB PO PRN (14:16)
[2016-12-23] MEDS ORDERED: ONDANSETRON 4 MG/2 ML VIAL IVP PRN (14:16)
[2016-12-23] MEDS ORDERED: ONDANSETRON DISINTEGRATING 4 MG TAB ONE (15:47)
[2016-12-23] MEDS ORDERED: PROMETHAZINE HCL 25 MG/ML INJ IVP PRN (15:59)
[2016-12-23] MEDS ORDERED: HYOSCYAMINE SULFATE 0.125 MG TAB PO ONE (15:59)
[2016-12-23] MEDS ORDERED: MAG HYDROX/AL HYDROX/SIMETH 30 ML UDCUP PO ONE (15:59)
[2016-12-23] MEDS ORDERED: LIDOCAINE 2% VISCOUS 15 ML UDCUP PO ONE (15:59)
[2016-12-23] MEDS: NS 1,000 ML IV SCH (16:44)
--- NOTE | 2016-12-23 17:06 | GHP ---
[f rep st] HISTORY AND PHYSICAL DATE OF ADMISSION: 12/23/2016 CHIEF COMPLAINT: Abdominal pain, nausea and vomiting. HISTORY OF PRESENT ILLNESS: A 26-year-old male with no significant past medical history, who origin ally presented on 11/28/2016 with similar complaints to those he presents with today. The patient w as admitted to the hospital, seen by Gastroenterology, had an EGD performed at that time that did sh ow esophagitis and duodenitis. The patient was treated with a proton pump inhibitor and recommended to stop the use of marijuana, as they fell it was very likely that the patient's nausea and vomitin g syndrome was a cannabinoid-related syndrome. The patient reports going home and doing well for a period of time, and then re-developing abdominal discomfort, nausea and vomiting. He said his pain originally began in his back bilaterally and then moved to his abdomen approximately 24 hours ago. He then developed intractable nausea and vomiting. Denies any hematemesis. Denies any coffee-groun ds emesis. Reports that he thought he was taking adequate fluid resuscitation, but was not tolerati ng any solid food. The patient reports that he was not using marijuana, but then when challenged th at his cannabinoid screen was positive, reports that he then just come back. The patient denies any chest pain, any shortness of breath, any cough, any subjective fevers or chills. He reports that h is nausea and vomiting are improved by taking showers at home, and reports the Haldol given to him a t the [facility] was also very helpful. PAST MEDICAL HISTORY: 1. Includes a previous history of cannabinoid-related hyperemesis. 2. Gastritis, duodenitis thought related to NSAIDs and cyclic vomiting. SOCIAL HISTORY: Negative for tobacco. The patient says only occasional alcohol. He now reports he has cut back on his marijuana, but will not quantify exactly how much. FAMILY HISTORY: Negative for similar nausea/vomiting syndrome. REVIEW OF SYSTEMS: A 10-point review of systems is negative, with the exception of that reported in the HPI. PHYSICAL EXAMINATION: VITAL SIGNS: Blood pressure 131/95, heart rate 72, respiratory rate 12, 97% on room air, 36.9. GENERAL: This is a young, healthy-appearing male in no acute distress. HEENT: Notable for dry mucous membranes. Eye exam is negative for any icterus. CARDIAC: The patient has a regular rate and rhythm. PULMONARY: Clear to auscultation bilaterally. GASTROINTESTINAL: Posi tive bowel sounds. The abdomen is soft. The patient is mildly tender to palpation diffusely. No r ebound or guarding is appreciated. MUSCULOSKELETAL: Negative for any lower extremity edema. SKIN: Notable for numerous tattoos. No rashes. NEUROLOGIC: He is alert and oriented x3. PSYCHIATRIC: The patient was cooperative. He had an unusual grin on his face during my examination, but additi onally reporting pain at the same time. DATA: White count 7.3, hematocrit 46.4, platelets of 188. Creatinine 1.0, anion gap is 18, bicarb 20, blood glucose 126. Urinalysis negative. Urine tox positive for THC. CT of the abdomen, which I personally reviewed and interpreted, shows no acute abnormalities. ASSESSMENT AND PLAN: This is a 26-year-old male presenting with nausea and vomiting. 1. Intractable nausea and vomiting. CT imaging is negative for any underlying pathology. High donald picion still for cannabis-related hyperemesis. The patient's pain is not specific to his epigastriu m, but more diffuse. Will continue treatment for his previously diagnosis esophagitis and duodeniti s. Will continue fluid resuscitation, IV antiemetics and will repeat Haldol dosing on an appropriat e interval. 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 The patient did not seem interested in my description of his syndrome. I have low suspicion he will st op using cannabis going forward. 2. Metabolic acidosis, suspect starvation ketosis. He has 2+ ketones in his urinalysis. Will flui d resuscitate and slowly advance his diet as tolerated. Can repeat a BMP in the morning. 3. Esophagitis/duodenitis. Will continue twice daily PPI per the previous recommendations of Gastr oenterology. 4. Prophylaxis with Lovenox. DIET: Will begin clear liquids and advance as tolerated. DISPOSITION: I expect greater than 2 midnights as the patient very likely will require more time fo r appropriate fluid resuscitation and treatment of his symptoms with IV medications in the longer ti me period away from cannabis. I have discussed the case with the floor RN. They will begin with a warm shower and a repeat dose o f Haldol. P.o. intake will begin with clear liquids. /[id number]/MODL
[2016-12-23] MEDS: HALOPERIDOL LACT 5 MG/ML INJ IVP PRN (19:51)
[2016-12-23] MEDS: PANTOPRAZOLE SODIUM 40 MG in NS 100 ML IV SCH (19:51)
[2016-12-24] MEDS: HALOPERIDOL LACT 5 MG/ML INJ IVP PRN (05:20)
[2016-12-24] MEDS: NS 1,000 ML IV SCH (05:20)
[2016-12-24 06:05] LABS: ANION GAP 11 mEq/L (8-16); CALCIUM 8.3 mg/dL (8.5-10.4); CARBON DIOXIDE 18 mEq/l (22-31); CHLORIDE 113 mEq/L (97-110); CREATININE 0.7 mg/dL (0.7-1.3); GLOMERULAR FILTRATION RATE > 60; GLUCOSE 79 mg/dL (70-100); POTASSIUM 3.8 mEq/L (3.5-5.2); SODIUM 142 mEq/L (134-144)
[2016-12-24 06:07] LABS: % IMMATURE GRANULYOCYTES 0.4 % (0.0-1.1); ABSOLUTE IMMATURE GRANULOCYTES 0.03 10^3/uL (0.00-0.10); ADD DIFF? NO; ADD MORPH? NO; ADD SCAN? YES; FRAGMENT RBC FLAG 0 (0-99); LEFT SHIFT FLG 0 (0-99); LIPEMIA HEMOLYSIS FLAG 90 (0-99); MEAN CELL HEMOGLOBIN 31.9 pg (27.9-34.1); MEAN CELL HEMOGLOBIN CONCENTR. 35.1 g/dL (32.4-36.7); MEAN CELL VOLUME 90.9 fL (81.5-99.8); MEAN PLATELET VOLUME 10.8 fL (8.7-11.7); PLATELET CLUMPS FLAG 0 (0-99); PLATELET COUNT 168 10^3/uL (150-400); RED BLOOD CELL COUNT 4.07 10^6/uL (4.40-6.38); RED CELL DISTRIBUTION WIDTH 12.2 % (11.5-15.2)
[2016-12-24 06:11] LABS: ATYPICAL LYMPHOCYTE FLAG 210 (0-99)
[2016-12-24 06:36] LABS: SCAN NEGATIVE
[2016-12-24 08:32] VITALS: TEMP 98.1
[2016-12-24] MEDS ORDERED: ENOXAPARIN 40 MG/0.4 ML SYR SC SCH (09:00)
[2016-12-24] MEDS: PANTOPRAZOLE SODIUM 40 MG in NS 100 ML IV SCH (09:15)
[2016-12-24 12:04] VITALS: BP 121/76; PULSE 77; RESP 18; O2SAT 97
--- NOTE | 2016-12-24 14:29 | GDS ---
[f rep st] DISCHARGE SUMMARY DISCHARGE DIAGNOSES: 1. Cyclic vomiting. 2. Metabolic acidosis. 3. History of esophagitis with duodenitis. PHYSICAL EXAMINATION: GENERAL: The patient is alert. VITAL SIGNS: Afebrile, pulse is 77, respira tory rate is 18, blood pressure is 121/76. He is saturating 97% on room air. I have seen and evalu ated the patient on the day of discharge. HOSPITAL COURSE: The patient is a 26-year-old male, who presented to the emergency room with compla ints of nausea and vomiting. He was evaluated and diagnosed with. 1. Cyclic vomiting. During this hospitalization, he was treated with supportive management. His c yclic vomiting is likely secondary to his THC ingestion. He has received education with regard to t his; however, did not seem interested in his diagnosis or description of his syndrome. Anticipate t he patient will continue to use marijuana in the outpatient setting and continue to be symptomatic. 2. Metabolic acidosis. This has resolved with fluid resuscitation and tolerating oral intake. 3. Esophagitis with duodenitis. He has been on proton-pump inhibitor and this will be continued. He will follow up with Gastroenterology. 4. Disposition. The patient will be discharged home independently. Follow up will be with gastroe nterologist of his choice. There are no pending studies. DISCHARGE MEDICATIONS: Please refer to EMR form. I have not provided the patient any prescriptions at the time of disposition. /[id number]/MODL
== END 2016-12-24 14:03 | disposition home or self-care (01) ==
LOC: CED 11:02 → CEDHOLD 13:04 → F3E 15:35
PROVIDERS: ADMIT Hospitalist; ATTEND Hospitalist
DX: G43.A1 Cyclical vomiting, in migraine, intractable (principal); E87.2 Acidosis; Z87.19 Personal history of other diseases of the digestive system
CPT/HCPCS: 74177-PO; 80048-PO; 80076-PO; 80307-PO; 81003-PO; 81015-PO; 83605-PO; 83690-PO; 85025-PO; 85610-PO; 85730-PO; 96365; G0378; J1650; J2405; J2550; Q9967

== ENCOUNTER 2017-01-30 08:59 | Emergency (ER) | payer SELFPAY ==
[2017-01-30] MEDS ORDERED: METOCLOPRAMIDE 10 MG/2 ML VIAL IVP ONE (09:53)
[2017-01-30] MEDS ORDERED: LORazepam 2 MG/ML INJ IVP ONE (09:53)
[2017-01-30] MEDS ORDERED: NS 1,000 ML IV ONE (09:53)
[2017-01-30] MEDS ORDERED: HALOPERIDOL LACT 5 MG/ML INJ IVP ONE (09:54)
--- NOTE | 2017-01-30 09:58 | EDPHY ---
H & P Stated Complaint: pt states he is here with cyclical vomiting syndrome - Personal History Current Tetanus/Diphtheria Vaccine: No - Medical/Surgical History Hx Asthma: No Hx Chronic Respiratory Disease: No Hx Diabetes: No Hx Cardiac Disease: No Hx Renal Disease: No Hx Cirrhosis: No Hx Alcoholism: No Hx HIV/AIDS: No Hx Splenectomy or Spleen Trauma: No Other PMH: cyclical vomiting/kidney stones renal failure - Social History Smoking Status: Never smoked Time Seen by Provider: 01/30/17 09:46 HPI/ROS: CHIEF COMPLAINT: "I have cyclic vomiting again" HISTORY OF PRESENT ILLNESS: 26-year-old male with history of cyclic vomiting bleed to be possibly secondary to chronic THC and alcohol use, in the emergency department complaining of intractable nausea vomiting retching since last evening. Last drink of alcohol was yesterday during the daytime. States that he has by enlarged decreased his marijuana use but continues to use marijuana on a regular. He has prior history of admission for same most recently approximately 1 month ago at [facility]. He denies: Fever, chills, back or flank pain, genitalia pain, urinary abnormality REVIEW OF SYSTEMS: A ten point review of systems was performed and is negative with the exception of the items mentioned in the HPI PAST MEDICAL & SURGICAL HISTORY: Cyclic vomiting. SOCIAL HISTORY: Chronic alcohol and THC use PHYSICAL EXAM (Prior to examination, patient consented to physical exam, hands were washed and my usual and customary physical exam procedures followed) 1) GENERAL: Well-developed, well-nourished, alert and oriented. Appears uncomfortable, audibly retching . 2) HEAD: Normocephalic, atraumatic 3) HEENT: Pupils equal, round, reactive to light bilaterally. Sclera anicteric. Nasopharynx, oropharynx, clear, no lesions. Dry mucous membrane 4) NECK: Full range of motion, no meningeal signs. 5) LUNGS: Clear auscultation bilaterally, no wheezes, no rhonchi, no retractions. 6) HEART: Regular rate and rhythm, no murmur, no heave, no gallop. 7) ABDOMEN: No guarding, no rebound, no focal tenderness, negative McBurney's, negative Marmolejo's, negative Rovsing's, negative peritoneal sign, flat, I am unable to elicit any abdominal pain on exam 8) MUSCULOSKELETAL: Moving all extremities, no focal areas of tenderness, no obvious trauma. No peripheral edema or discoloration. 9) BACK: No CVA tenderness, no midline vertebral tenderness, no fluctuance, no step-off, no obvious trauma, no visual or palpable abnormality. 10) SKIN: No rash, no petechiae. 11) Psychiatric: Patient is oriented X 3, there is no agitation. DIFFERENTIAL DIAGNOSIS: My differential diagnosis includes, but is not limited to, acute appendicitis, acute cholecystitis, bowel obstruction, acute pancreatitis, , gastritis , cyclic vomiting, cannabis hyperemesis syndrome,. The patient understands that this diagnosis is provisional and can never be 100 % accurate. This is a partial list of diagnoses considered. These considerations are based on history, physical exam, past history and reassessment. (Renan Sinha) Constitutional: Initial Vital Signs Temperature (C) 36.4 C 01/30/17 09:04 Heart Rate 106 H 01/30/17 09:04 Respiratory Rate 28 H 01/30/17 09:04 Blood Pressure 124/90 H 01/30/17 09:04 O2 Sat (%) 99 01/30/17 09:04 O2 Delivery Mode Room Air Allergies/Adverse Reactions: azithromycin Allergy (Verified 01/30/17 09:03) Hives Home Medications: Medication Instructions Recorded Ondansetron Odt [Zofran Odt] 4 mg PO Q4PRN PRN #7 tab 01/30/17 Medical Decision Making ED Course/Re-evaluation: After evaluating patient old medical records reviewed. History of cyclic vomiting syndrome believed to be more than likely secondary to chronic THC and alcohol use. 12:10 p.m.: Re-evaluation, tolerating oral intake. Re-examined his abdomen which is soft no guarding or rebound no McBurney's point pain negative peritoneal sign. 12:40 p.m.: Re-evaluation, sleeping, would like to be discharged home. Care and management in consultation with [secondary] supervising physician Dr Chowdary . I think that acute surgical abdominal pathology, acute appendicitis, bowel obstruction, less than likely this patient at this time. Given usual customary abdominal precautions instructions. Recommend cessation of chronic alcohol and THC use. (Renan Sinha) The patient was evaluated and managed by the physician operator assistant i cementing. I have reviewed this chart and I agree with the findings and plan of care as documented , as indicated by my signature. I am the secondary supervising physician. ( Cathie Chowdary) - Data Points Laboratory Results: Laboratory Results 01/30/17 09:19 01/30/17 09:19 Medications Given: Discontinued Medications Diphenhydramine HCl (Benadryl Injection) 25 mg IVP EDNOW ONE Stop: 01/30/17 09:54 Last Admin: 01/30/17 10:19 Dose: 25 mg Haloperidol Lactate (Haldol Injection) 2.5 mg IVP EDNOW ONE Stop: 01/30/17 09:55 Last Admin: 01/30/17 10:20 Dose: 2.5 mg Sodium Chloride (Ns) 1,000 mls @ 0 mls/hr IV ONCE ONE PRN Reason: Wide Open Stop: 01/30/17 09:54 Last Admin: 01/30/17 10:20 Dose: 1,000 mls Lorazepam (Ativan Injection) 1 mg IVP EDNOW ONE Stop: 01/30/17 09:54 Last Admin: 01/30/17 10:19 Dose: 1 mg Metoclopramide HCl (Reglan Injection) 10 mg IVP EDNOW ONE Stop: 01/30/17 09:54 Last Admin: 01/30/17 10:19 Dose: 10 mg Departure - Departure Disposition: Home, Routine, Self-Care Clinical Impression: Nausea and vomiting Condition: Good Instructions: Acute Nausea and Vomiting (ED) Additional Instructions: Please do not use alcohol or marijuana in the future Referrals: Steph Montemayor MD [Medical Doctor] - As per Instructions Prescriptions: Ondansetron Odt [Zofran Odt] 4 mg PO Q4PRN PRN #7 tab PRN Reason: Nausea
[2017-01-30 10:02] LABS: % IMMATURE GRANULYOCYTES 0.5 % (0.0-1.1); ABSOLUTE IMMATURE GRANULOCYTES 0.07 10^3/uL (0.00-0.10); ADD DIFF? NO; ADD MORPH? NO; ADD SCAN? NO; ATYPICAL LYMPHOCYTE FLAG 10 (0-99); FRAGMENT RBC FLAG 0 (0-99); HEMATOCRIT 52.3 % (40.0-51.0); HEMOGLOBIN 18.9 g/dL (13.7-17.5); LEFT SHIFT FLG 0 (0-99); LIPEMIA HEMOLYSIS FLAG 90 (0-99); MEAN CELL HEMOGLOBIN 33.9 pg (27.9-34.1); MEAN CELL HEMOGLOBIN CONCENTR. 36.1 g/dL (32.4-36.7); MEAN CELL VOLUME 93.7 fL (81.5-99.8); MEAN PLATELET VOLUME 10.2 fL (8.7-11.7); PLATELET CLUMPS FLAG 10 (0-99); PLATELET COUNT 377 10^3/uL (150-400); RED BLOOD CELL COUNT 5.58 10^6/uL (4.40-6.38)
[2017-01-30 10:06] LABS: ALANINE AMINOTRANSFERASE 28 IU/L (21-72); ALBUMIN 5.2 g/dL (3.5-5.0); ALKALINE PHOSPHATASE 96 IU/L (38-126); ANION GAP 24 mEq/L (8-16); ASPARTATE AMINOTRANSFERASE 33 IU/L (17-59); BILIRUBIN,TOTAL 1.4 mg/dL (0.1-1.4); BILIRUBIN-CONJUGATED 0.5 mg/dL (0.0-0.5); BILIRUBIN-UNCONJUGATED 0.9 mg/dL (0.0-1.1); CALCIUM 10.9 mg/dL (8.5-10.4); CARBON DIOXIDE 16 mEq/l (22-31); CHLORIDE 104 mEq/L (97-110); CREATININE 0.9 mg/dL (0.7-1.3); GLOMERULAR FILTRATION RATE > 60; GLUCOSE 92 mg/dL (70-100); SODIUM 144 mEq/L (134-144); TOTAL PROTEIN 8.8 g/dL (6.3-8.2)
[2017-01-30 10:28] VITALS: RESP 16
[2017-01-30 12:55] VITALS: BP 147/76; PULSE 111; TEMP 98.1; O2SAT 96
== END 2017-01-30 12:54 | disposition home or self-care (01) ==
DX: R11.2 Nausea with vomiting, unspecified (principal)
CPT/HCPCS: 96374; J1200; J2060; J2765